=== PATIENT | male | born 1990 | race Caucasian/White ===

== ENCOUNTER 2024-04-04 05:14 | Emergency (ER) | payer BC, SELFPAY ==
[2024-04-04 05:16] VITALS: BP 120/72
[2024-04-04 05:36] VITALS: BP 114/84
[2024-04-04] MEDS: ZOFRAN 4 MG IV (05:39)
[2024-04-04 06:00] VITALS: BP 116/79
[2024-04-04 06:06] LABS: % Basophils 0.6 % (0-2); % Eosinophils 2.6 % (0-6); % Immature Granulocytes 0.3 % (0-0.5); % Lymphocytes 34.5 % (20.5-51.1); Absolute Eosinophils 0.2 10^3/uL (0-0.7); Absolute Lymphocytes 2.5 10^3/uL (1.2-3.4); Absolute Monocytes 0.8 10^3/uL (0.1-0.6); Absolute Neutrophils 3.7 10^3/uL (1.4-6.5); Hematocrit 42.5 % (39.0-52.0); Hemoglobin 14.9 g/dL (13.0-18.0); Mean Corp Hgb Conc. 35.1 g/dL (33.0-37.0); Mean Corpuscular Hgb 30.5 pg (27.0-31.0); Mean Corpuscular Volume 86.9 fL (80.0-94.0); Mean Platelet Volume 12.3 fL (7.4-10.4); Nucleated Red Blood Cells % 0 % (-); Platelet Count 186 10^3/uL (130-400); Red Blood Cell Count 4.89 10^6/uL (4.70-6.10); Red Cell Dist. Width 12.7 % (11.5-14.5); White Blood Cell Count 7.2 10^3/uL (4.8-10.8)
[2024-04-04 06:10] LABS: ALT (SGPT) 16 U/L (0-50); AST (SGOT) 24 U/L (17-59); Albumin 4.5 g/dl (3.5-5.0); Alkaline Phosphatase 68 U/L (38-126); Blood Urea Nitrogen 19 mg/dl (9-20); Calcium 9.7 mg/dl (8.4-10.2); Carbon Dioxide 24 mmol/L (22-30); Chloride 105 mmol/L (98-107); Glucose 152 mg/dl (70-99); Potassium 4.2 mmol/L (3.5-5.1); Sodium 140 mmol/L (135-145); Total Bilirubin 0.6 mg/dl (0.2-1.3); Total Protein 7.2 g/dl (6.3-8.2); eGFR > 60.00
[2024-04-04] MEDS: DILAUDID 1 MG IV (06:56)
[2024-04-04] MEDS: NSS 1000 IV (06:56)
[2024-04-04] MEDS: FLOMAX 0.4 MG PO (06:57)
[2024-04-04 07:00] VITALS: BP 125/96
[2024-04-04 07:03] VITALS: BP 125/96
--- NOTE | 2024-04-04 07:46 | ED.GENMED ---
History of Present Illness
<Dimitris Drake MD, Resident - Last Filed: 04/04/24 09:13>
General
Chief Complaint: Flank Pain
Time Seen by Provider: 04/04/24 06:18
History of Present Illness
History of Present Illness:
33-year-old male, Shorty Garcia presented to the ER complaining of right flank pain that woke him up early in the morning at 3:30 AM today. Patient reports the pain is sharp, stabbing, intermittent, 5/10 in intensity, and lying down aggravates the
pain. Patient does not take any pain medications. 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 No history of fever/chills, dysuria, thinning urinary stream, hematuria, chest
pain, SOB, recent sick contacts, recent travel, bowel disturbances. Patient has a history of renal stones(calcium oxalate) twice, first time in 2018, and next in 2022 for which he underwent laser lithotripsy and stent placement.
Past History
<Dimitris Drake MD, Resident - Last Filed: 04/04/24 09:13>
Past History
ED Past Medical History: Other (Kidney stones)
Social History
Tobacco: Non-smoker
Alcohol: None
Drug: None
Personal:
Living: with family
Employment: Employed
Review of Systems
<Dimitris Drake MD, Resident - Last Filed: 04/04/24 09:13>
Review of Systems
All Other Systems: ROS reviewed and negative except as documented in HPI and ROS
Phy Exam
<Dimitris Drake MD, Resident - Last Filed: 04/04/24 09:13>
Physical Exam
Physical Exam:
Physical Exam
General: no apparent distress, not acutely ill
Neck: supple. no cervical lymphadenopathy
HEENT: Normocephalic, atraumatic, oral mucosa moist.
Heart: s1/s2 regular rate and rhythm, no murmur. equal radial pulses.
Lungs: no acute respiratory distress. clear bilaterally
Abdomen: normal bowel sounds. not tender. no CVAT, no guarding, rigidity.
Neuro: alert and oriented. no focal neurological deficits
Skin: no rash
Psychiatric: well kept. interactive and cooperative
Extremities: no edema. no calf tenderness. good distal pulses
Course
<Veneela Brando Drake MD, Resident - Last Filed: 04/04/24 09:13>
Orders/Labs/Results
Orders:
Orders
04/04/24 05:34
Ondansetron Injectable [Zofran] 4 mg .ROUTE .STK-MED ONE
04/04/24 05:39
Ondansetron Injectable [Zofran] 4 mg IV NOW STA
04/04/24 05:47
CMP [Comprehensive Metabolic Panel] Urgent
Complete Blood Count/With Diff Urgent
04/04/24 05:50
CT Abd/pel Without Iv Or Oral Urgent
Comment:
Reason For Exam: acute R flank pain
04/04/24 06:53
0.9% Sodium Chloride 1000 ml [Nss] 1,000 ml IV BOLUS
HYDROmorphone [Dilaudid] 1 mg IV NOW STA
Tamsulosin [Flomax] 0.4 mg PO NOW STA
04/04/24 06:54
HYDROmorphone [Dilaudid] 1 mg .ROUTE .STK-MED ONE
04/04/24 08:13
Urinalysis Reflex To Culture Urgent
Date Specimen was Collected: 04/04/24
Time Specimen was Collected: 06:30
Urine Microscopic Reflex Cult Urgent
Abnormal Lab Results
04/04/24 04/04/24
05:47 08:13
MPV 12.3 H fL
(7.4-10.4)
Absolute Monos (auto) 0.8 H 10^3/uL
(0.1-0.6)
Monocytes % 11.0 H %
(1.7-9.3)
Glucose 152 H mg/dl
(70-99)
Ur Occult Blood Reflex 4+ A
(Negative)
Leukocyte Esterase Rfl Trace A
(Negative)
Urine RBC 80-90 A /HPF
(0-2)
04/04/24 05:47
04/04/24 05:47
Vital Signs
Initial and Last Documented VS:
Initial Vital Signs
Temp Pulse Resp BP Pulse Ox
97.2 F 56 26 120/72 98
04/04/24 05:16 04/04/24 05:16 04/04/24 05:16 04/04/24 05:16 04/04/24 05:16
Last Documented Vital Signs
Temp Pulse Resp BP Pulse Ox
97.2 F 64 15 125/96 100
04/04/24 05:16 04/04/24 07:03 04/04/24 07:03 04/04/24 07:03 04/04/24 08:03
<Alexx Messina, - Last Filed: 04/04/24 08:20>
Orders/Labs/Results
Orders:
Orders
04/04/24 05:34
Ondansetron Injectable [Zofran] 4 mg .ROUTE .STK-MED ONE
04/04/24 05:39
Ondansetron Injectable [Zofran] 4 mg IV NOW STA
04/04/24 05:47
CMP [Comprehensive Metabolic Panel] Urgent
Complete Blood Count/With Diff Urgent
04/04/24 05:50
CT Abd/pel Without Iv Or Oral Urgent
Comment:
Reason For Exam: acute R flank pain
04/04/24 06:53
0.9% Sodium Chloride 1000 ml [Nss] 1,000 ml IV BOLUS
HYDROmorphone [Dilaudid] 1 mg IV NOW STA
Tamsulosin [Flomax] 0.4 mg PO NOW STA
04/04/24 06:54
HYDROmorphone [Dilaudid] 1 mg .ROUTE .STK-MED ONE
04/04/24 08:13
Urinalysis Reflex To Culture Urgent
Date Specimen was Collected: 04/04/24
Time Specimen was Collected: 06:30
Urine Microscopic Reflex Cult Urgent
Abnormal Lab Results
04/04/24 04/04/24
05:47 08:13
MPV 12.3 H fL
(7.4-10.4)
Absolute Monos (auto) 0.8 H 10^3/uL
(0.1-0.6)
Monocytes % 11.0 H %
(1.7-9.3)
Glucose 152 H mg/dl
(70-99)
Ur Occult Blood Reflex 4+ A
(Negative)
Leukocyte Esterase Rfl Trace A
(Negative)
Urine RBC 80-90 A /HPF
(0-2)
04/04/24 05:47
04/04/24 05:47
Vital Signs
Initial and Last Documented VS:
Initial Vital Signs
Temp Pulse Resp BP Pulse Ox
97.2 F 56 26 120/72 98
04/04/24 05:16 04/04/24 05:16 04/04/24 05:16 04/04/24 05:16 04/04/24 05:16
Last Documented Vital Signs
Temp Pulse Resp BP Pulse Ox
97.2 F 64 15 125/96 100
04/04/24 05:16 04/04/24 07:03 04/04/24 07:03 04/04/24 07:03 04/04/24 08:03
<Dimitris Drake MD, Resident - Last Filed: 04/04/24 09:13>
MDM/Problems Addressed
Differential Diagnosis Includes:
Renal calculi, gastroenteritis, appendicitis.
MDM/Problems Addressed:
CBC�no evidence of leukocytosis. CMP unremarkable, except for glucose at 152.
Urinalysis-gross and microscopic hematuria, no evidence of infection
CT abdomen/pelvis�3 mm distal renal calculus on the right side.
Patient's vitals are stable.
Patient started on IV fluids.
Treated symptomatically with ondansetron, Dilaudid and Flomax.
Patient has improved clinically.
Can be discharged home with instructions for renal calculus. Advised to follow-up with urology for further management. Adequate hydration.
Discharge medications�Percocet, tamsulosin.
<Dimitris Drake MD, Resident - Last Filed: 04/04/24 09:13>
*Critical Care Note
Total Time (30-74mins, 75-104mins- exclusive of procedures): Not Applicable
ED Attending Note
<Dimitris Drake MD, Resident - Last Filed: 04/04/24 09:13>
-
Portions of this chart may have been created with voice recognition software.� Occasional wrong word or��sound alike� substitutions may have occurred due to the inherent limitations of voice recognition software.
<Alexx Messina DO - Last Filed: 04/04/24 08:20>
ED Attending Note
Patient seen and examined by attending physician: Yes
I performed the substantive portion of visit, reviewed & personally made and approve the management plan that is documented in note by myself or RIYA.: Yes
I performed a history and physical exam of patient and discussed management with resident, I reviewed resident's note and agree with documented findings and plan of care.: Yes
ED Attending Note:
I evaluated the patient at bedside. The patient appears somewhat uncomfortable upon arrival. He reports a severe reaction to Toradol in the past. He was given Dilaudid. Overall he has improved. CT shows a 3 mm stone at the distal right ureter.
He was given Dilaudid, Zofran, Flomax and fluids.
Discharge Plan
Departure
Prescriptions:
No Action
duloxetine 60 mg Capsule,Delayed Release(Dr/Ec)
60 mg PO DAILY
Referrals:
NONE,* [Family Provider] -
Interventions
Interventions:
*General Assessment Last Done: 04/04/24 06:08
*Neglect/Abuse Screening Last Done: 04/04/24 06:08
ED- Fall Risk Assessment Last Done: 04/04/24 07:06
*ED COVID-19 Vaccine History Last Done: 04/04/24 06:08
NK-Zldyyq-Mziacqbyqv Assessment Last Done: 04/04/24 07:03
ED-Male Genitourinary Assessment Last Done: 04/04/24 07:03
Discharge Date and Time
Print Language: CHINESE
[2024-04-04 08:32] LABS: Urine Albumin Trace (Neg - Trace); Urine Bilirubin Negative (Negative); Urine Character Slightly Cloudy (Clear); Urine Color Brown; Urine Glucose Negative (Negative); Urine Ketone Negative (Negative); Urine Leukocyte Trace (Negative); Urine Nitrite Negative (Negative); Urine Occult Blood 4+ (Negative); Urine Urobilinogen Negative (Neg - 1+)
[2024-04-04 08:49] LABS: Urine Red Blood Cell 80-90 /HPF (0-2)
[2024-04-04 09:23] VITALS: BP 106/70
== END 2024-04-04 10:03 | disposition home or self-care (01) ==
LOC: EMR 05:14
PROVIDERS: Emergency Medicine; EMERGENCY PHYSICIAN Emergency Medicine
DX: N20.1 Calculus of ureter (principal); Z87.442 Personal history of urinary calculi
CPT/HCPCS: 99284; 96374; 96375; 96361; 74176; 80053; 81003; 81015; 85025; 99285